=== PATIENT | male | born 2000 | race Caucasian/White ===

== ENCOUNTER → 2019-04-23 | Outpatient (CLI) | payer BC | LOC: GMAE 10:43 | PROVIDERS: ATTEND Family Medicine | DX: Z00.00 Encounter for general adult medical examination without abnormal findings (principal); R53.83 Other fatigue; R07.89 Other chest pain ==

== ENCOUNTER 2019-07-22 07:56 | Emergency (ER) | payer BC, OTHER ==
--- NOTE | 2019-07-22 08:00 | ED.PDOC ---
History of Present Illness - General Time Seen by Provider: 07/22/19 07:59 Source: patient - History of Present Illness Initial Comments: 18 yo male who is bib mother from [email or web address] for cc of closed head injury at [employer] which occurred approx 6:30 am today. Pt states he was riding on horseback at a trot without a helmet when his head struck a metal pole that he didn't see in the dark. Struck to left anterior head and left periorbital region. Pt reports briefly "blacking out and seeing stars" for a couple minutes, denies falling off the horse. Was able to get down on his own to the ground with some difficulty. Reports constant 8/10 pressure and throbbing pain to his entire head since the injury, no exacerbating or alleviating factors. Also reports moderate pain to his entire neck and to his mid-upper back without radiation. States he briefly had some numbness sensation to left hand earlier for several minutes "like it fell asleep" which is now resolved. Denies any visual changes, weakness, n/v. States he did briefly spit up some blood but also resolved now. Denies any trouble breathing, chest pain, epistaxis, or other acute injuries. Reports left eye is bruised and moderately swollen but denies any acute visual disturbance or pain localized to the eye. Pt reports also some moderate sore throat which began this morning, denies any fevers, chills, cough, abd pain. Allergies/Adverse Reactions: Allergies NO KNOWN ALLERGY Allergy (Verified 07/22/19 08:27) Review of Systems - Review of Systems Review of Systems: 07/22/19 08:19 as per HPI All other Systems: Reviewed and Negative Family Medical History - Family History Mother Family History: No Known Physical Exam - Physical Exam General Appearance: Alert, Comfortable, No apparent distress Eye Exam: left other - moderate periorbital swelling and ecchymosis, otherwise eye exam normal BL Ears, Nose, Throat: hearing grossly normal, normal ENT inspection Neck: non-tender, full range of motion, supple, normal inspection Respiratory: chest non-tender, lungs clear, normal breath sounds, no respiratory distress Cardiovascular/Chest: normal peripheral pulses, regular rate, rhythm, no edema, no murmur Peripheral Pulses: radial,right: 2+, radial,left: 2+ Gastrointestinal/Abdominal: non tender, soft, no organomegaly Back Exam: normal inspection, no CVA tenderness, no vertebral tenderness Extremity: normal range of motion, non-tender, normal inspection, no pedal edema, no calf tenderness, normal capillary refill, pelvis stable Neurologic: conflict resolution professional II-XII nml as tested, no motor/sensory deficits, alert, normal mood/affect, oriented x 3 Skin Exam: normal color, warm/dry Progress - Progress Progress: 07/22/19 08:21 Closed head injury -consider ICH vs concussion vs facial fractures vs skull frx vs c/t/l spine frx vs other -stat CT head/c/t/l spine, maxillofacial, CXR, EKG, labs -place PIV, 1 L NS bolus, Toradol 30 mg IV for pain, c-collar placed on arrival 07/22/19 09:26 -CT scans show no acute fractures of c/t/l spine, maxillofacial, and no acute processes on CT head -labs largely unremarkable, CXR no acute processes per my read -pt remains stable, states headache and pain markedly improved, denies any visual changes, no further numbness of left hand or other neurological sx's -Discussed with pt need for MRI c-spine to rule out ligamentous injury given his closed head injury with transient left hand numbness and neck pain reported - unable to clear c-spine until this can be ruled out -ED nurse spoke with radiology staff - will allow for stat MRI c-spine here for further eval 07/22/19 12:21 -MRI c-spine shows no acute processes. 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 Mild DDD noted. -c-spine cleared by me at bedside. Pt reports still feeling much better, headache remains nearly resolved, no confusion, visual disturbance, weakness, numbness -discussed dx of closed head injury and concussion with pt & family at length. No horseback riding or heavy physical activity or sports until cleared by doctor, f/u in next 7 days for repeat eval -dc home with family in good condition, return warnings discussed at length Juan Ramon Smith MD Billing #[id number] - Results/Orders Results/Orders: 07/22/19 08:11 IV Care:Saline Lock per [employer]toc QSHIFT Telemetry .ONCE Sodium Chloride 0.9% (Flush) [Saline Flush Syringe] 10 ml IV PRN PRN EKG Stat 07/22/19 08:14 Collar:Cervical (Hard) .PRN 07/22/19 08:40 STREP A SCREEN CULTURE Stat 07/22/19 09:00 Pulse Ox Daily Laboratory Results - last 24 hr 07/22/19 07/22/19 07/22/19 08:25 08:25 08:25 WBC 6.4 RBC 5.37 Hgb 16.3 Hct 47.4 MCV 88.3 MCH 30.4 MCHC 34.4 RDW 12.9 Plt Count 218 MPV 7.8 Absolute Neuts (auto) 3.50 Absolute Lymphs (auto) 2.00 Absolute Monos (auto) 0.60 Absolute Eos (auto) 0.30 Absolute Basos (auto) 0.00 Neutrophils % 54.0 Lymphocytes % 30.8 Monocytes % 9.4 H Eosinophils % 5.1 H Basophils % 0.7 PT 11.0 H INR 1.10 PTT (SP) 21.6 L Sodium 138 Potassium 4.6 Chloride 103 Carbon Dioxide 27 Anion Gap 12.6 BUN 17 Creatinine 0.89 BUN/Creatinine Ratio 19.1 Random Glucose 127 H Serum Osmolality 278.8 Calcium 9.6 Total Bilirubin 0.8 AST 23 ALT 29 Alkaline Phosphatase 69 L Troponin I Serum Total Protein 7.2 Albumin 4.4 Globulin 2.8 Albumin/Globulin Ratio 1.6 Urine Color Urine Appearance Urine pH Ur Specific [place] Urine Protein Urine Glucose (UA) Urine Ketones Urine Blood Urine Nitrite Urine Bilirubin Urine Urobilinogen Ur Leukocyte Esterase Urine RBC Urine WBC Ur Epithelial Cells Amorphous Sediment Urine Bacteria Urine Mucus Urine Opiates Screen Urine Barbiturates Ur Phencyclidine Scrn Ur Amphetamine Screen U Benzodiazepines Scrn U Cocaine Metab Screen U Cannabinoids Screen Group A Strep Rapid 07/22/19 07/22/19 07/22/19 08:25 08:40 09:30 WBC RBC Hgb Hct MCV MCH MCHC RDW Plt Count MPV Absolute Neuts (auto) Absolute Lymphs (auto) Absolute Monos (auto) Absolute Eos (auto) Absolute Basos (auto) Neutrophils % Lymphocytes % Monocytes % Eosinophils % Basophils % PT INR PTT (SP) Sodium Potassium Chloride Carbon Dioxide Anion Gap BUN Creatinine BUN/Creatinine Ratio Random Glucose Serum Osmolality Calcium Total Bilirubin AST ALT Alkaline Phosphatase Troponin I < 0.02 Serum Total Protein Albumin Globulin Albumin/Globulin Ratio Urine Color Yellow Urine Appearance Clear Urine pH 6.0 Ur Specific [place] >= 1.030 Urine Protein Negative Urine Glucose (UA) Negative Urine Ketones Negative Urine Blood Negative Urine Nitrite Negative Urine Bilirubin Negative Urine Urobilinogen 0.2 Ur Leukocyte Esterase Negative Urine RBC 0 Urine WBC 0-1 Ur Epithelial Cells 1-3 Amorphous Sediment 1+ Urine Bacteria Rare Urine Mucus Large Urine Opiates Screen Urine Barbiturates Ur Phencyclidine Scrn Ur Amphetamine Screen U Benzodiazepines Scrn U Cocaine Metab Screen U Cannabinoids Screen Group A Strep Rapid Negative 07/22/19 11:45 WBC RBC Hgb Hct MCV MCH MCHC RDW Plt Count MPV Absolute Neuts (auto) Absolute Lymphs (auto) Absolute Monos (auto) Absolute Eos (auto) Absolute Basos (auto) Neutrophils % Lymphocytes % Monocytes % Eosinophils % Basophils % PT INR PTT (SP) Sodium Potassium Chloride Carbon Dioxide Anion Gap BUN Creatinine BUN/Creatinine Ratio Random Glucose Serum Osmolality Calcium Total Bilirubin AST ALT Alkaline Phosphatase Troponin I Serum Total Protein Albumin Globulin Albumin/Globulin Ratio Urine Color Urine Appearance Urine pH Ur Specific [place] Urine Protein Urine Glucose (UA) Urine Ketones Urine Blood Urine Nitrite Urine Bilirubin Urine Urobilinogen Ur Leukocyte Esterase Urine RBC Urine WBC Ur Epithelial Cells Amorphous Sediment Urine Bacteria Urine Mucus Urine Opiates Screen Negative Urine Barbiturates Negative Ur Phencyclidine Scrn Negative Ur Amphetamine Screen Negative U Benzodiazepines Scrn Negative U Cocaine Metab Screen Negative U Cannabinoids Screen Negative Group A Strep Rapid - EKG/XRAY/CT EKG: Sinus - Normal sinus rhythm, HR 60, <[address] elevations noted in II, III, aVF, V5-V6, no q waves, intervals normal, axis normal, no prior EKG for comparison. Suspect ST elevations normal variant in this young healthy male without chest pain Departure - Departure Clinical Impression: Concussion Qualifiers: Encounter type: initial encounter Loss of consciousness presence/duration: with LOC of 30 min or less Qualified Code(s): S06.0X1A - Concussion with loss of consciousness of 30 minutes or less, initial encounter Periorbital contusion of left eye Qualifiers: Encounter type: initial encounter Qualified Code(s): S05.12XA - Contusion of eyeball and orbital tissues, left eye, initial encounter Time of Disposition: 12:24 Disposition: Discharge to Home or Self Care Condition: Fair Instructions: Concussion, Adult (DC) Diet: resume usual diet Referrals: ISIDORO HERNANDES MD [Primary Care Provider] - 1-2 Weeks Additional Instructions: Allow your body to rest and recover for next several days as you are recovering from concussion injury. No horseback riding or sports participation or heavy physical activity until cleared by your primary care doctor. Follow up in the clinic with your primary care doctor in next 5-7 days for repeat evaluation. Return to the ED if you have rapidly worsening or severe headache, vision changes, confusion, trouble walking, weakness or numbness, or other concerning symptoms.
[2019-07-22 08:27] VITALS: TEMP 94.9
[2019-07-22] MEDS: SODIUM CHLORIDE 0.9% (FLUSH) 10 ML SYG IV PRN (08:31)
[2019-07-22] MEDS: SODIUM CHLORIDE 0.9% 1000ML 1,000 ML IVS ONE (08:31)
[2019-07-22] MEDS: KETOROLAC TROMETHAMINE INJ 30 MG/ML VIAL IV ONE (08:31)
--- NOTE | 2019-07-22 08:56 | RAD ---
Study: Single Frontal Radiograph of the Chest. Indication:closed head injury, dizziness Comparison: None. Impression: Heart size normal. Lungs clear. No acute osseous abnormality. Electronically signed by: Shlomo Arciniega MD 07/22/2019 8:55 AM [facility]
--- NOTE | 2019-07-22 08:58 | CT ---
Study: CT cervical spine. Indication: closed head injury, headache, neck, back pain Technique: Axial CT images were acquired through the cervical spine without intravenous contrast. Coronal and sagittal reformats performed. This exam was performed according to our departmental dose-optimization program, which includes automated exposure control, adjustment of the mA and/or kV according to patient size and/or use of iterative reconstruction technique. Comparison: None. Findings: Vertebral body height maintained. Straightening cervical spine. No acute fracture or subluxation. No high-grade spinal canal narrowing or neural foraminal narrowing. Impression: No acute cervical fracture. Electronically signed by: Shlomo Arciniega MD 07/22/2019 8:57 AM [facility]
--- NOTE | 2019-07-22 09:06 | CT ---
Study: CT of the Head. CT of the Face. Indication: closed head injury, headache, dizziness Technique: Axial CT images of the head were acquired without intravenous contrast. In addition, axial CT images were acquired of the face without intravenous contrast. Coronal and sagittal reformats performed. This exam was performed according to our departmental dose-optimization program, which includes automated exposure control, adjustment of the mA and/or kV according to patient size and/or use of iterative reconstruction technique. Comparison: None. Findings: No CT evidence of acute ischemia, acute hemorrhage, mass, mass effect, midline shift, or extra-axial fluid collection. Ventricles are normal in configuration without hydrocephalus. Brain parenchyma demonstrates a normal appearance for patient age. Mastoid air cells are adequately aerated. The tips of the bilateral nasal bones are slightly flattened concerning for age-indeterminate fractures. Mild to moderate mucosal thickening right maxillary sinus with minimal changes on the left. Scattered mild mucosal thickening ethmoid air cells. Left periorbital soft tissue swelling. Globes intact. Impression: No CT evidence of acute intracranial abnormality. Left periorbital soft tissue swelling. Flattening of the tips of the bilateral nasal bones which could reflect age-indeterminate fractures. Otherwise, no displaced fracture. Electronically signed by: Shlomo Arciniega MD 07/22/2019 9:01 AM [facility]
--- NOTE | 2019-07-22 09:07 | CT ---
Study: CT of the Lumbar Spine. Indication: closed head injury, upper back pain Technique: Axial CT images of the lumbar spine acquired without intravenous contrast. Coronal and sagittal reformats performed. This exam was performed according to our departmental dose-optimization program, which includes automated exposure control, adjustment of the mA and/or kV according to patient size and/or use of iterative reconstruction technique. Comparison: None Findings: Small Schmorl's nodes of the inferior endplates of T12-L1. No acute lumbar fracture. No high-grade spinal canal narrowing or neural foraminal narrowing. Impression: No acute lumbar fracture. Electronically signed by: Shlomo Arciniega MD 07/22/2019 9:04 AM [employer]
--- NOTE | 2019-07-22 10:30 | CT ---
Study: CT of the Thoracic Spine. Indication: closed head injury, upper back pain Technique: Axial CT images of the thoracic spine acquired without intravenous contrast. Coronal and sagittal reformats performed. This exam was performed according to our departmental dose-optimization program, which includes automated exposure control, adjustment of the mA and/or kV according to patient size and/or use of iterative reconstruction technique. Comparison: None. Findings: No acute fracture or subluxation of the thoracic spine. No high-grade spinal canal narrowing or neural foraminal narrowing. No advanced disc space height loss. Small Schmorl's node inferior endplate of T12. Impression: No acute thoracic fracture. Electronically signed by: Shlomo Arciniega MD 07/22/2019 10:28 AM [facility]
--- NOTE | 2019-07-22 12:08 | MRI ---
EXAM DESCRIPTION: Cervical Spine: MRI. CLINICAL HISTORY: 18 years Male closed head injury, neck pain, transient L hand numbness COMPARISON: CT scan cervical spine and multiple other CT scans post trauma today. TECHNIQUE: Multiplanar, high-field MRI, multiple sequences, non-contrast Cervical spine. Image degradation on some sequences due to patient motion. FINDINGS: C5-C6: Minimal desiccation in the disc with disc space preserved. Similar signal in the C2-C3 disc, and similar appearance of the disc space. Tiny posterior midline bulge with no significant canal narrowing. Bilateral foramina are patent. Normal signal in the remaining discs with no bulging. Disc spaces preserved. Canal and neural foramina are patent. Facet joints negative. Spinal alignment minimal kyphosis C2-C4 trace dextroscoliosis. No cord compression or cord edema. Atlantoaxial joint unremarkable. Base of the cerebellar tonsils is 5.9 mm below the foramen magnum. Paravertebral soft tissues unremarkable.. Vertebral bodies are not compressed at any level. Otherwise normal marrow signal in the remaining vertebral bodies and the posterior elements. IMPRESSION: 1. No marrow edema in the vertebral bodies posterior elements. No abnormal orientation of the facet joints. No significant disc space loss or disc herniation. No paravertebral soft tissue mass or edema. 2. Minimal desiccation of the C2-3 and C5-6 discs without significant disc space loss or bulging. Canal and foramina are patent. 3. Cerebellar tonsillar ectopia but no evidence of mass effect in the posterior fossa or herniation on this examination or CT scan of the head performed 2 hours earlier. Electronically signed by: Antoni Schumacher MD 07/22/2019 12:06 PM PHYSICIAN/INTERNIST
[2019-07-22 12:41] VITALS: BP 135/83; O2SAT 97
== END 2019-07-22 12:42 | disposition home or self-care (01) ==
LOC: ER 07:56
DX: S06.0X1A Concussion with loss of consciousness of 30 minutes or less, initial encounter (principal); S05.12XA Contusion of eyeball and orbital tissues, left eye, initial encounter; M54.2 Cervicalgia; R20.0 Anesthesia of skin; J02.9 Acute pharyngitis, unspecified; W22.09XA Striking against other stationary object, initial encounter; Y93.52 Activity, horseback riding; Y92.79 Other farm location as the place of occurrence of the external cause
CPT/HCPCS: 70450; 70486; 71045; 72125; 72128; 72131; 72141; 80053; 81001; 84484; 85025; 85610; 85730; 87070; 87880; 93005; 94760; J1885; J7030